=== PATIENT | female | born 1985 | race Caucasian/White ===

== ENCOUNTER 2019-06-16 15:45 | Observation (INO) ==
[2019-06-16] MEDS ORDERED: TYLENOL PO ONE (16:02)
[2019-06-16] MEDS ORDERED: NS 1,000 ML IV ONE ×3 (16:02→16:07)
--- NOTE | 2019-06-16 16:12 | PROVIDER DOCUMENTATION ---
HPI-Fever - General Chief Complaint: SEPSIS ALERT - P Stated Complaint: SOB / ABD PAIN / FEVER Time Seen by Provider: 06/16/19 16:02 Source: patient Allergies/Adverse Reactions: Patient Allergies Allergy/AdvReac Type Severity Reaction Status Date / Time cephalexin monohydrate * AdvReac RASH Verified 04/28/14 20:23 [From Keflex] levofloxacin [From Levaquin] AdvReac HIVES Verified 06/16/19 17:37 Home Medications: Home Medication List Medication Instructions Recorded Confirmed Last Taken Type Naproxen Sodium 550 mg PO BID PRN 04/28/14 04/28/14 04/28/14 19:00 History Oxycodone HCl/Acetaminophen 1 each PO Q4-6H PRN PRN 04/28/14 04/28/14 04/28/14 16:00 History [Oxycodone-Acetaminophen 5-325] - History of Present Illness-Fever Nature of Presenting Problem: 34 yof presents with c/o fever, chills, low back pain, abdominal pain, sob, cough x 2 days. reports she initially began feeling unwell about one week ago and symptoms progressed. She denies PMH. On meds for depression and and anxiety. Fever Severity/Quality: reports: greater than 102 F Onset/Duration: reports: 2 days ago Timing: reports: still present Severity: reports: severe Context: reports: none Recent Illness?: reports: none Fever Therapy SUPPLY MANAGER: Initiated Ibuprofen Cognitive Baseline: alert, oriented x3 Modifying Factors: improves with: nothing Associated Symptoms: reports: back/neck pain, cough, fever/chills, headaches, nausea, shortness of breath, weakness Similar Symptoms Previously?: No - Glascow Coma Score Best Eye Response ([place]): (4) open spontaneously Best Verbal Response ([place]): (5) oriented Best Motor Response ([place]): (6) obeys commands Review of Systems - Adult - REVIEW OF SYSTEMS - ADULT Constitutional: reports: see HPI, chills, fever. denies: no symptoms reported, fatique, night sweats, weight gain, weight loss, other Eyes: reports: no symptoms reported. denies: see HPI, discharge, dry eyes, decreased vision, blurred vision, double vision, eye pain, redness, other Ears, Nose, Mouth & Throat: reports: ear pain. denies: no symptoms reported, see HPI, ear discharge, hearing loss, tinnitus, epistaxis, sinus problem, nose pain, loose teeth, mouth/dental pain, mouth swelling, hoarseness, throat pain, throat swelling, other Cardiovascular: reports: no symptoms reported. denies: see HPI, chest pain, edema, heart murmur, irregular heart rate, orthopnea, palpitations, poor circulation, PND, syncope, other Respiratory: reports: see HPI, cough, shortness of breath. denies: no symptoms reported, chronic cough, dyspnea on exertion, excessive sputum production, hemoptysis, pleurisy, wheezing, other Gastrointestinal: reports: abdominal pain, nausea. denies: no symptoms reported, see HPI, hematemesis, constipation, diarrhea, difficulty swallowing, frequent heartburn, poor appetite, rectal bleeding, vomiting, other Genitourinary: reports: flank pain. denies: no symptoms reported, see HPI, dysuria, discharge, frequency, frequent UTI's, hematuria, hesitency, incontinence, urinary retention, urgency, other Musculoskeletal: reports: back pain (low back pain). denies: no symptoms reported, see HPI, bone pain, frequent leg cramps, joint pain, joint swelling, muscle aches, muscle weakness, neck pain, other Integumentary: reports: no symptoms reported. denies: see HPI, hives, hair loss, itching, mole changes, nail changes, rash, skin sores/ulcer, skin thickening, other Neurological: reports: no symptoms reported. denies: see HPI, ataxia, dizziness/vertigo, headache/migraines, loss of balance, numbness, paresthesia, seizure, slurred speech, syncope, tremors, other Psychiatric: reports: no symptoms reported. denies: see HPI, anxiety, anti-depressant use, alcohol/drug dependence, depression, emotional problems, insomnia, panic attacks, suicidal thoughts, other Endocrine: reports: no symptoms reported. denies: see HPI, change in skin pigment, excessive sweating, goiter, cold intolerance, heat intolerance, increased hunger, increased thirst, polyuria, other Hematologic/Lymphatic: reports: no symptoms reported. denies: see HPI, blood clots, easy bruising, low blood count, lymphedema, prolonged bleeding, swollen lymph nodes, transfusions, other Allergic/Immunologic: reports: no symptoms reported. denies: see HPI, allergic reactions, allergic rhinitis, asthma, eczema, food allergy, frequent infections, hay fever, hives, positive PPD, urticaria, other Past History - Adult - PAST MEDICAL HISTORY-ADULT Review of Records: reports: Nursing Assessment Review, Social history reviewed & non-contributory. Major Childhood Illnesses: reports: denies history - PRIOR SURGERIES/PROCEDURES Surgical/Procedure History: reports: - IMMUNIZATION STATUS Childhood Immunizations: See Nurse Assessment Flu Vaccine: See Nurse Assessment - FAMILY HISTORY Family History: reviewed, not pertinent Physical Exam-General - PHYSICAL EXAM-ADULT Initial Vital Signs Reviewed: Yes - CONSTITUTIONAL General Appearance: alert, no apparent distress. negative: appears well (ill appearing) - EYES Eyes: PERRL/EOMI, pink conjunctivae - HEAD, EARS, NOSE, MOUTH & THROAT HENMT: normocephalic/atraumatic, moist mucous membranes, normal ENT inspection - NECK Neck: non-tender, full range of motion, supple - RESPIRATORY Respiratory: chest non-tender, lungs clear, normal breath sounds, no pleuratic chest pain, no respiratory distress - CARDIOVASCULAR Cardiovascular: normal peripheral pulses, tachycardia - GASTROINTESTINAL (ABDOMEN) Abdominal Exam: normal bowel sounds, soft, tenderness - LYMPHATIC Lymphatic: no adenopathy - MUSCULOSKELETAL Back Exam: normal inspection, no CVA tenderness, no vertebral tenderness Extremity: normal range of motion, non-tender, normal gait Peripheral Pulses: radial (R): 2+, radial (L): 2+ - SKIN Integumentary: normal color, normal turgor, warm/dry - NEUROLOGIC Neurologic: grossly normal - PSYCHIATRIC Psych/Mental Status: normal mood/affect, oriented x 3 Progress - PLAN OF CARE/RESULTS Progress/Plan/Lab Results: Vital Signs - 8 hr 06/16/19 15:53 06/16/19 17:21 06/16/19 19:01 Temperature 102.1 F H 99.3 F Pulse Rate 138 H 137 H 117 H Respiratory Rate 28 H 20 28 H Blood Pressure 136/82 137/90 127/73 O2 Sat by Pulse Oximetry 95 100 97 Laboratory Results - last 24 hr 06/16/19 06/16/19 06/16/19 16:00 16:06 16:16 WBC RBC Hgb Hct MCV MCH MCHC RDW Std Deviation Plt Count MPV Immature Gran % (Auto) Neut % (Auto) Lymph % (Auto) Harris % (Auto) Eos % (Auto) Baso % (Auto) Immature Gran # (Auto) Neut # (Auto) Lymph # (Auto) Harris # (Auto) Eos # (Auto) Baso # (Auto) Segmented Neutrophils Band Neutrophils Lymphocytes Monocytes PT INR PTT (Actin FS) D-Dimer, Quantitative Specimen Type ARTERIAL Sample Site L RADIAL pH 7.47 H pCO2 28 L pO2 71 HCO3 23.2 Base Excess -2.1 Oxyhemoglobin 94.4 L ABG O2 Sat (Calculated) 17.0 ABG O2 Saturation 97.8 ABG Carboxyhemoglobin 2.40 ABG Methemoglobin 1.1 Himanshu Test YES A-a O2 Difference 44.0 Total Hemoglobin 12.8 Lactate 2.30 H Blood Gas Modality ROOM AIR FiO2 % 21.0 Sodium Potassium Chloride Carbon Dioxide Anion Gap BUN Creatinine Estimated GFR/1.73 m2 BUN/Creatinine Ratio Glucose Calculated Osmolality Calcium Magnesium Total Bilirubin AST ALT Alkaline Phosphatase Creatine Kinase Troponin T Total Protein Albumin Globulin Albumin/Globulin Ratio Plasma Lactate Urine Source CLEAN CATCH Urine Color YELLOW Urine Turbidity HAZY Urine pH 6.5 Ur Specific Palmer 1.016 Urine Protein TRACE A Ur Glucose (Stick) 200 A Ur Ketones (Stick) NEGATIVE Urine Blood LARGE A Urine Nitrite NEGATIVE Urine Bilirubin NEGATIVE Urobilinogen Dipstick NORMAL Urine Leukocytes LARGE A Urine WBC (Auto) TNTC A Urine RBC (Auto) TNTC A U Epithel Cells (Auto) >10 A Urine Bacteria (Auto) 1+ Urine Crystals NONE SEEN Small Round Cells NONE SEEN Urine Casts NONE SEEN Urine Yeast-like Cells NONE SEEN Influenza A (Rapid) NEGATIVE Influenza B (Rapid) NEGATIVE 06/16/19 06/16/19 06/16/19 16:57 16:57 16:57 WBC 11.54 H RBC 3.99 L Hgb 11.2 L Hct 34.6 L MCV 86.7 MCH 28.1 MCHC 32.4 L RDW Std Deviation 14.1 Plt Count 260 MPV 9.2 Immature Gran % (Auto) 0.3 Neut % (Auto) 85.6 H Lymph % (Auto) 7.7 L Harris % (Auto) 6.0 Eos % (Auto) 0.3 Baso % (Auto) 0.1 Immature Gran # (Auto) 0.03 Neut # (Auto) 9.88 H Lymph # (Auto) 0.89 L Harris # (Auto) 0.69 H Eos # (Auto) 0.04 Baso # (Auto) 0.01 Segmented Neutrophils 81 H Band Neutrophils 2 H Lymphocytes 11 L Monocytes 6 PT INR PTT (Actin FS) D-Dimer, Quantitative 0.54 H Specimen Type Sample Site pH pCO2 pO2 HCO3 Base Excess Oxyhemoglobin ABG O2 Sat (Calculated) ABG O2 Saturation ABG Carboxyhemoglobin ABG Methemoglobin Himanshu Test A-a O2 Difference Total Hemoglobin Lactate Blood Gas Modality FiO2 % Sodium 135 L Potassium 3.5 Chloride 103 Carbon Dioxide 19 L Anion Gap 13 BUN 7 L Creatinine 0.4 L Estimated GFR/1.73 m2 > 60 BUN/Creatinine Ratio 18 Glucose 149 H Calculated Osmolality 271 Calcium 8.0 L Magnesium Total Bilirubin 0.40 AST 20 ALT 11 Alkaline Phosphatase 85 Creatine Kinase 50 Troponin T Total Protein 6.8 Albumin 3.5 Globulin 3.0 Albumin/Globulin Ratio 1.0 Plasma Lactate Urine Source Urine Color Urine Turbidity Urine pH Ur Specific Palmer Urine Protein Ur Glucose (Stick) Ur Ketones (Stick) Urine Blood Urine Nitrite Urine Bilirubin Urobilinogen Dipstick Urine Leukocytes Urine WBC (Auto) Urine RBC (Auto) U Epithel Cells (Auto) Urine Bacteria (Auto) Urine Crystals Small Round Cells Urine Casts Urine Yeast-like Cells Influenza A (Rapid) Influenza B (Rapid) 06/16/19 06/16/19 06/16/19 16:57 16:57 16:57 WBC RBC Hgb Hct MCV MCH MCHC RDW Std Deviation Plt Count MPV Immature Gran % (Auto) Neut % (Auto) Lymph % (Auto) Harris % (Auto) Eos % (Auto) Baso % (Auto) Immature Gran # (Auto) Neut # (Auto) Lymph # (Auto) Harris # (Auto) Eos # (Auto) Baso # (Auto) Segmented Neutrophils Band Neutrophils Lymphocytes Monocytes PT 13.9 INR 1.02 PTT (Actin FS) 27.8 D-Dimer, Quantitative Specimen Type Sample Site pH pCO2 pO2 HCO3 Base Excess Oxyhemoglobin ABG O2 Sat (Calculated) ABG O2 Saturation ABG Carboxyhemoglobin ABG Methemoglobin Himanshu Test A-a O2 Difference Total Hemoglobin Lactate Blood Gas Modality FiO2 % Sodium Potassium Chloride Carbon Dioxide Anion Gap BUN Creatinine Estimated GFR/1.73 m2 BUN/Creatinine Ratio Glucose Calculated Osmolality Calcium Magnesium Total Bilirubin AST ALT Alkaline Phosphatase Creatine Kinase Troponin T < 0.010 Total Protein Albumin Globulin Albumin/Globulin Ratio Plasma Lactate 2.3 H Urine Source Urine Color Urine Turbidity Urine pH Ur Specific Palmer Urine Protein Ur Glucose (Stick) Ur Ketones (Stick) Urine Blood Urine Nitrite Urine Bilirubin Urobilinogen Dipstick Urine Leukocytes Urine WBC (Auto) Urine RBC (Auto) U Epithel Cells (Auto) Urine Bacteria (Auto) Urine Crystals Small Round Cells Urine Casts Urine Yeast-like Cells Influenza A (Rapid) Influenza B (Rapid) 06/16/19 16:57 WBC RBC Hgb Hct MCV MCH MCHC RDW Std Deviation Plt Count MPV Immature Gran % (Auto) Neut % (Auto) Lymph % (Auto) Harris % (Auto) Eos % (Auto) Baso % (Auto) Immature Gran # (Auto) Neut # (Auto) Lymph # (Auto) Harris # (Auto) Eos # (Auto) Baso # (Auto) Segmented Neutrophils Band Neutrophils Lymphocytes Monocytes PT INR PTT (Actin FS) D-Dimer, Quantitative Specimen Type Sample Site pH pCO2 pO2 HCO3 Base Excess Oxyhemoglobin ABG O2 Sat (Calculated) ABG O2 Saturation ABG Carboxyhemoglobin ABG Methemoglobin Himanshu Test A-a O2 Difference Total Hemoglobin Lactate Blood Gas Modality FiO2 % Sodium Potassium Chloride Carbon Dioxide Anion Gap BUN Creatinine Estimated GFR/1.73 m2 BUN/Creatinine Ratio Glucose Calculated Osmolality Calcium Magnesium 1.5 Total Bilirubin AST ALT Alkaline Phosphatase Creatine Kinase Troponin T Total Protein Albumin Globulin Albumin/Globulin Ratio Plasma Lactate Urine Source Urine Color Urine Turbidity Urine pH Ur Specific Palmer Urine Protein Ur Glucose (Stick) Ur Ketones (Stick) Urine Blood Urine Nitrite Urine Bilirubin Urobilinogen Dipstick Urine Leukocytes Urine WBC (Auto) Urine RBC (Auto) U Epithel Cells (Auto) Urine Bacteria (Auto) Urine Crystals Small Round Cells Urine Casts Urine Yeast-like Cells Influenza A (Rapid) Influenza B (Rapid) Orders Category Date Time Status Admit - [facility] Routine AdmDCTranf 06/16/19 17:46 Active Activity - Up with Assistance ORDERED Care 06/16/19 17:46 Active Cardiac Monitoring DIRECTED Care 06/16/19 16:00 Active DVT/PE Risk Assess/Protocol [QM] ORDERED Care 06/16/19 17:46 Active IV Insertion ORDERED Care 06/16/19 16:00 Completed Intake and Output-Strict ORDERED Care 06/16/19 17:46 Active Notify MD of + Sepsis Screen NOW Care 06/16/19 16:00 Active Notify Physician As Ordered Care 06/16/19 16:00 Active Vital Signs Order Q 8-HR ASSESS Care 06/16/19 17:46 Active Z-Document. for Tele Applied ORDERED Care 06/16/19 17:47 Active Regular Diet Diet 06/16/19 17:47 Active CHEST-1 VIEW [RAD] Stat Exams 06/16/19 16:[address] ABD/PELVIS/PULM ARTERIES [CT] Stat Exams 06/16/19 17:33 Completed ABG [RESP] Routine Lab 06/16/19 16:16 Completed BLOOD CULTURE [BLDCUL] Stat Lab 06/16/19 16:24 Ordered CBC WITH DIFF [HEME] Stat Lab 06/16/19 16:57 Completed CBC WITH NO DIFF [HEME] Routine Lab 06/17/19 06:00 Ordered CK PROFILE [SP CHEM] Stat Lab 06/16/19 16:57 Completed COMPREHENSIVE METABOLIC PANEL [CHEM] Routine Lab 06/17/19 06:00 Uncollected COMPREHENSIVE METABOLIC PANEL [CHEM] Stat Lab 06/16/19 16:57 Completed D-DIMER [COAG] Stat Lab 06/16/19 16:57 Completed Flu [INFLUENZA SCREEN PL] Stat Lab 06/16/19 16:00 Completed LACTATE, PLASMA [CHEM] Lab 06/16/19 19:17 Received LACTATE, PLASMA [CHEM] Lab 06/16/19 22:00 Uncollected LACTATE, PLASMA [CHEM] Q3H Lab 06/16/19 16:57 Completed MAGNESIUM [CHEM] Routine Lab 06/17/19 06:00 Uncollected MAGNESIUM [CHEM] Stat Lab 06/16/19 16:57 Completed PROTIME WITH INR [COAG] Stat Lab 06/16/19 16:57 Completed PTT [COAG] Stat Lab 06/16/19 16:57 Completed TROPONIN T Stat Lab 06/16/19 16:57 Completed URINALYSIS W/POSS RFLX CULT [URINALYSIS] Stat Lab 06/16/19 16:06 Completed URINE CULTURE [RM] Routine Lab 06/16/19 16:53 Ordered URINE MANUAL MICROSCOPIC [URINALYSIS] Stat Lab 06/16/19 16:06 Completed 0.9% Sodium Chloride Inj [Ns] 1,000 ml Med 06/16/19 17:45 Active IV 75 mls/hr 0.9% Sodium Chloride Inj [Ns] 1,000 ml Med 06/16/19 16:02 Discontinued IV 999 mls/hr 0.9% Sodium Chloride Inj [Ns] 1,000 ml Med 06/16/19 16:07 Discontinued IV 999 mls/hr 0.9% Sodium Chloride Inj [Ns] 1,000 ml Med 06/16/19 16:07 Discontinued IV 999 mls/hr Acetaminophen [Tylenol] Med 06/16/19 16:02 Discontinued 1,000 mg PO NOW ONE Acetaminophen [Tylenol] Med 06/16/19 17:45 Active 650 mg PO Q6H PRN PRN Diphenhydramine [Benadryl] Med 06/16/19 17:26 Discontinued 25 mg IV NOW ONE Ibuprofen [Motrin] Med 06/16/19 19:03 Discontinued 800 mg PO NOW ONE Levofloxacin 750 mg/D5w [Levaquin 750 mg/D5w] Med 06/16/19 16:45 Discontinued 750 mg in 150 ml IV NOW Ondansetron [Zofran] Med 06/16/19 17:45 Active 4 mg IV Q4-6H PRN PRN Piperacillin/Tazobactam [Zosyn] 3.375 gm Med 06/16/19 17:45 Active 0.9% Sodium Chloride Inj [Ns] 50 ml IV Q6H Oxygen Device Stat Oth 06/16/19 16:00 Active Telemetry [OM.EQ] Routine Oth 06/16/19 17:46 Active EKG [EKG] Stat Ther 06/16/19 16:08 Ordered 1725: NOTIFIED BY RN THAT PATIENT HAVING REACTION TO LEVAQUIN. PT ASSESSED BY HUMAN RESOURCES SPECIALIST AND MD BALDWIN, LOCAL REACTION WITH HIVES AND REDNESS TO THE RIGHT ARM (LOCATION OF IV), NO RESP DISTRESS, PT DENIES TROUBLE BREATHING OR CHANGES IN THE WAY HER THROAT FEELS. LUNGS CTAB, NO WHEEZING OR STRIDOR. RECOMMEND 25MG BENADRYL IV NOW AND MONITOR 1800: PT HIVES HAVE FULLY RESOLVED, SHE IS NAD. ZOSYN INFUSING CURRENTLY Result Diagrams: 06/16/19 16:57 06/16/19 16:57 - XRAY 1 XRAY Study: Chest Impression: See EMR Report ( EXAM: CHEST-1 VIEW - 06/16/2019 HISTORY: FEVER TECHNIQUE: Portable chest one view COMPARISON: None. FINDINGS: Heart size appears within normal limits. The lungs appear clear. There is no pleural effusion or pneumothorax identified. IMPRESSION: No evidence of acute disease. Electronically signed by Magdaleno Menendez 06/16/2019 4:36 PM 06/16/19 1636 Interpreting Physician: Magdaleno Menendez MD Dictated Date/Time: 06/16/19 163 cc: Mehdi Baldwin MD; Walter Martinez MD) - CT/MRI 1 CT Study: Abdomen, Angiogram, Pelvis, Thorax Impression: See EMR Report (CT ABD/PELVIS/PULM ARTERIES - 06/16/2019 INDICATION: SOB, TACHY, ELEVATED D-DIMER TECHNIQUE: Axial CT images were obtained after administering intravenous contrast. Coronal MIP images were generated. COMPARISON: None FINDINGS: CHEST: There is no pulmonary embolus and. Heart and great vessels are normal. The lungs are clear. Bones are intact. Abdomen pelvis: The liver, gallbladder, spleen, pancreas, adrenals, and kidneys are normal. No bowel obstruction or inflammation. Normal appendix. Urinary bladder, uterus, and rectum are normal. Bones are intact and well certified fraud examiner alized. IMPRESSION: Negative exam. This exam was performed using automated exposure control, adjustment of mA or kV according to patient size, and/or use of iterative reconstruction technique Electronically signed by Montez Pathak 06/16/2019 7:14 PM 06/16/191913 Interpreting Physician: Montez Pathak MD Dictated Date/Time: 06/16/191910 cc: Elaina Bowers; Walter Martinez MD) - CONSULTS/PCP/HOSPITALIST Notification #1 *Consult/PCP/Hospitalist*: DR BEACH Time Discussed: 19:21 Consult Disposition: Admit (HAS ALREADY SEEN PATIENT) Departure - Departure Date of Disposition Decision: 06/16/19 Time of Disposition Decision: 19:19 DIAGNOSIS: UTI (urinary tract infection), Sepsis Disposition: ADMITTED INPATIENT 09 Certified Medical Emergency: Emergent Condition: Stable Referrals and Follow-Ups: Walter Martinez MD [Primary Care Provider] - - Critical Care Note This patient required my direct & personal management of CC.: No Attestation - Physician/ ALVIN Attestation Patient care was provided by Advanced Practice Provider:: Yes Advanced Practice Provider:: Elaina Bowers Advanced Practice Provider documentation review:: The Mid-level provider documentation, treatment plan and medical decision making was reviewed by the physician who agrees with all treatment and medical decision making by the MLP. The physician spent face to face time with patient:: No Advanced Practice Provider documentation review:: Supervising physician onsite and consulted in the evaluation and care of this patient. The physician did not have a face to face encounter with the patient.
[2019-06-16 16:29] LABS: URINE SOURCE CLEAN CATCH
[2019-06-16 16:31] LABS: BILIRUBIN URINE NEGATIVE (NEGATIVE); BLOOD URINE LARGE (NEGATIVE); COLOR YELLOW; GLUCOSE URINE 200 mg/dL (NEGATIVE); KETONE URINE NEGATIVE (NEGATIVE); LEUKOCYTES URINE LARGE (NEGATIVE); NITRITE URINE NEGATIVE (NEGATIVE); PH URINE 6.5; PROTEIN URINE TRACE mg/dL (NEGATIVE); SP GRAVITY URINE 1.016; TURBIDITY URINE HAZY (CLEAR); UROBILINOGEN URINE NORMAL (NORMAL)
[2019-06-16 16:33] LABS: INFLUENZA A NEGATIVE (NEGATIVE); INFLUENZA B NEGATIVE (NEGATIVE)
--- NOTE | 2019-06-16 16:39 | Diag Imaging Result Doc PS360 ---
EXAM: CHEST-1 VIEW - 06/16/2019 HISTORY: FEVER TECHNIQUE: Portable chest one view COMPARISON: None. FINDINGS: Heart size appears within normal limits. The lungs appear clear. There is no pleural effusion or pneumothorax identified. IMPRESSION: No evidence of acute disease. Electronically signed by Magdaleno Menendez 06/16/2019 4:36 PM
[2019-06-16 16:42] LABS: BE -2.1 mmoll (-3.0-3.0); BLOOD TYPE ARTERIAL; HCO3-(ACT) 23.2 mmoll (20.0-26.0); METHB 1.1 % (0.0-1.5); O2HB 94.4 % (95.0-99.0); PCO2(98.6) 28 mmHg (35-45); PO2(98.6) 71 mmHg (60-100); SAMPLE BLOOD; SAO2 97.8 % (95.0-100.0); THB 12.8 g/dL (11.5-17.4); pH(98.6) 7.47 (7.35-7.45)
[2019-06-16 16:43] LABS: MODALITY ROOM AIR
[2019-06-16 16:44] LABS: ALLEN TEST YES
[2019-06-16] MEDS ORDERED: LEVAQUIN 750 MG/D5W 750 MG/150 ML IVPB IV ONE (16:45)
[2019-06-16 16:50] LABS: UR EPITHELIAL CELLS >10 /HPF (<10); URINE BACTERIA 1+ /HPF; URINE RBC TNTC /HPF (<10); URINE WBC TNTC /HPF (<10); URINE YEAST NONE SEEN
[2019-06-16 16:51] LABS: URINE CASTS NONE SEEN; URINE CRYSTALS NONE SEEN; URINE SMALL ROUND CELLS NONE SEEN
[2019-06-16 17:17] LABS: BASO# 0.01 X1000 (0.0-0.2); BASO% 0.1 % (0.0-0.8); EOS# 0.04 X1000 (0.0-0.7); EOS% 0.3 % (0.0-10.0); HEMATOCRIT 34.6 % (37.0-47.0); HEMOGLOBIN 11.2 g/dL (12.0-16.0); IMM GRAN# 0.03 X1000 (0.0-0.04); IMM GRAN% 0.3 % (0.0-0.5); LYMPH# 0.89 X1000 (1.2-3.4); LYMPH% 7.7 % (20.5-51.1); MCH 28.1 PG (27-31); MCHC 32.4 g/dL (33-37); MCV 86.7 FL (81-99); MONO# 0.69 X1000 (0.11-0.59); MPV 9.2 FL (7.4-10.4); NEUT# 9.88 X1000 (1.4-6.5); NEUT% 85.6 % (42.2-75.2); PLT 260 X1000 (130-400); RBC 3.99 XMIL (4.2-5.4); RDW 14.1 % (11.5-14.5); WBC 11.54 X1000 (4.8-10.8)
[2019-06-16 17:20] LABS: INR 1.02; PROTIME 13.9 Seconds (11.0-16.0)
[2019-06-16 17:21] LABS: PTT 27.8 Seconds (22.3-41.8)
[2019-06-16] MEDS ORDERED: BENADRYL IV ONE (17:26)
[2019-06-16 17:32] LABS: AGAP 13; ALBUMIN 3.5 g/dL (3.5-5.0); ALKALINE PHOSPHATASE 85 U/L (32-104); BUN 7 mg/dL (8-22); CHLORIDE 103 mmol/L (98-107); CK PROFILE 50 U/L (24-173); COSMO 271; CREATININE 0.4 mg/dL (0.5-0.9); ESTIMATED GFR > 60; GLUCOSE 149 mg/dL (70-104); GOT 20 U/L (10-30); GPT 11 U/L (10-36); POTASSIUM 3.5 mmol/L (3.5-5.1); SODIUM 135 mmol/L (136-145); TCO2 19 mmol/L (25-35); TOTAL PROTEIN 6.8 g/dL (6.3-8.3)
[2019-06-16 17:43] LABS: BANDS 2 % (0-1); LYMPHS 11 % (21-51); MONO 6 % (1-9); SEGS 81 % (42-75)
[2019-06-16] MEDS: ZOSYN 3.375 GM in NS 50 ML IV SCH ×2 (17:45→23:59)
[2019-06-16] MEDS ORDERED: ZOFRAN IV PRN (17:45)
[2019-06-16] MEDS ORDERED: MOTRIN PO ONE (19:03)
--- NOTE | 2019-06-16 19:08 | HISTORY AND PHYSICAL ---
CHIEF COMPLAINT: Abdominal pain, flank pain. HISTORY OF PRESENT ILLNESS: Patient is a very pleasant, 34-year-old, ill- appearing female, who is complaining of fevers, chills, and left flank pain, as well as abdominal pain. Notes she has had some cough and shortness of breath for the past couple of days. She has felt unwell for approximately a week. Symptoms apparently have continued to progress. Fever started last night, worsened today. ALLERGIES: Keflex. She most likely has an allergy to Levaquin. She currently is receiving it and her arm is itching. MEDICATIONS: Naprosyn p.r.n. REVIEW OF SYSTEMS: The patient notes she has had a fever of 102 yesterday and today. She has had increased nausea, vomiting, increased abdominal pain, and flank pain. She has had a headache, coughing, shortness of breath, generally weak. She has had shaking and chills. Denies any dysuria, however. Denies hematuria, hesitancy. Denies constipation, melena, hematochezia. Denies nasal congestion, blurred vision, change in vision. Denies any focalized numbness, tingling, or weakness in her extremities. Denies any chest pain. Denies any true shortness of breath, except for when she is coughing. PAST MEDICAL HISTORY: She has no chronic active medical problems. She has had a section in the past. FAMILY HISTORY: Noncontributory. PHYSICAL EXAMINATION: VITAL SIGNS: Reviewed. Temperature 102.1 degrees, pulse 138, respiratory 28, BP 136/82, saturation 95% on room air. GENERAL: Patient is awake, alert. She is in no current respiratory distress, although she is somewhat ill appearing. HEENT: Normocephalic, atraumatic. AFIA. NECK: Supple. CARDIOVASCULAR: Regular rate. CHEST: Clear, nonlabored. ABDOMEN: Soft, nondistended. She does have left flank pain. Positive bowel sounds. EXTREMITIES: Moves all extremities. NEUROLOGIC: No changes. LABORATORY DATA: White count is at 11. D-dimer 0.5. WBCs and RBCs too numerous to count in the urine. ASSESSMENT: 1. Pyelonephritis. 2. Sepsis secondary to pyelonephritis. 3. Fever. 4. Leukocytosis. 5. Elevated D-dimer. CTA currently pending. PLAN: We are going to admit her to the hospital. IV fluids, antibiotics, pain control. We will follow her supraventricular tachycardia. Further orders as needed. cc: Arya Fitzpatrick MD MTDD
--- NOTE | 2019-06-16 19:17 | Diag Imaging Result Doc PS360 ---
CT ABD/PELVIS/PULM ARTERIES - 06/16/2019 INDICATION: SOB, TACHY, ELEVATED D-DIMER TECHNIQUE: Axial CT images were obtained after administering intravenous contrast. Coronal MIP images were generated. COMPARISON: None FINDINGS: CHEST: There is no pulmonary embolus and. Heart and great vessels are normal. The lungs are clear. Bones are intact. Abdomen pelvis: The liver, gallbladder, spleen, pancreas, adrenals, and kidneys are normal. No bowel obstruction or inflammation. Normal appendix. Urinary bladder, uterus, and rectum are normal. Bones are intact and well mineralized. IMPRESSION: Negative exam. This exam was performed using automated exposure control, adjustment of mA or kV according to patient size, and/or use of iterative reconstruction technique Electronically signed by Montez Pathak 06/16/2019 7:14 PM
[2019-06-16] MEDS: NS 1,000 ML IV SCH (22:14)
[2019-06-16] MEDS: TYLENOL PO PRN (23:59)
[2019-06-17] MEDS: TYLENOL PO PRN (05:18)
[2019-06-17] MEDS: ZOSYN 3.375 GM in NS 50 ML IV SCH ×4 (06:28→23:05)
[2019-06-17 06:50] LABS: AGAP 12; ALBUMIN 3.3 g/dL (3.5-5.0); ALKALINE PHOSPHATASE 85 U/L (32-104); BUN 7 mg/dL (8-22); CALCIUM 7.4 mg/dL (8.8-10.2); CHLORIDE 107 mmol/L (98-107); COSMO 280; CREATININE 0.5 mg/dL (0.5-0.9); ESTIMATED GFR > 60; GLUCOSE 140 mg/dL (70-104); GOT 15 U/L (10-30); GPT 10 U/L (10-36); MAGNESIUM 1.5 mg/dL (1.5-2.7); POTASSIUM 3.4 mmol/L (3.5-5.1); SODIUM 140 mmol/L (136-145); TCO2 22 mmol/L (25-35); TOTAL PROTEIN 6.2 g/dL (6.3-8.3)
[2019-06-17 07:08] LABS: MCH 27.5 PG (27-31); MCHC 31.3 g/dL (33-37); MCV 87.9 FL (81-99); RBC 3.64 XMIL (4.2-5.4); RDW 14.1 % (11.5-14.5); WBC 11.05 X1000 (4.8-10.8)
[2019-06-17] MEDS ORDERED: SOLU-MEDROL IV ONE (09:34)
[2019-06-17] MEDS: LOPRESSOR PO SCH ×3 (10:07→22:15)
[2019-06-17] MEDS: DILAUDID IV PRN ×3 (10:07→19:31)
[2019-06-17] MEDS: LEXAPRO PO SCH (10:07)
[2019-06-17] MEDS: NS 1,000 ML IV SCH (11:27)
[2019-06-17] MEDS ORDERED: VANCOMYCIN IV PER PHARMACY MISC SCH (16:30)
--- NOTE | 2019-06-17 17:41 | PROGRESS NOTE ---
DATE: 06/17/2019 SUBJECTIVE: Patient notes she still feels terrible, still has flank pain, still has a headache. She did have a low-grade fever earlier at 100.8. Still having nausea. PHYSICAL EXAMINATION: Vital Signs: Reviewed. T-max 100.8, pulse 112, respiratory rate 22, BP 124/66. General: Patient is still ill appearing, although does appear to feel a little bit better than yesterday. HEENT: Normocephalic. Neck: Supple. Cardiovascular: Tachycardic. No murmurs. Chest: Clear, nonlabored. Abdomen: Soft, obese, tender over the left flank. Extremities: Moves all extremities. Neurologic: No changes. ASSESSMENT: 1. Pyelonephritis. 2. Sepsis secondary to pyelonephritis. 3. Fever. 4. Leukocytosis. PLAN: We will continue patient in the hospital. I am going to add vancomycin, as she is growing gram-positive cocci in her urine. Further orders as needed. cc: Arya Fitzpatrick MD
[2019-06-17] MEDS: VANCOMYCIN 2,000 MG in NS 500 ML IV SCH (17:59)
[2019-06-18] MEDS: NS 1,000 ML IV SCH ×2 (05:21→08:57)
[2019-06-18] MEDS: DILAUDID IV PRN ×2 (05:21→08:57)
[2019-06-18] MEDS: ZOSYN 3.375 GM in NS 50 ML IV SCH ×2 (05:21→11:30)
[2019-06-18] MEDS: VANCOMYCIN 2,000 MG in NS 500 ML IV SCH (06:01)
[2019-06-18 07:39] VITALS: BP 129/69
[2019-06-18] MEDS: LEXAPRO PO SCH (08:57)
[2019-06-18] MEDS: LOPRESSOR PO SCH (08:57)
[2019-06-18] MEDS ORDERED: NORCO-7.5 PO ONE (10:54)
--- NOTE | 2019-06-18 13:58 | DISCHARGE SUMMARY ---
ADMISSION DATE: 06/16/2019 DISCHARGE DATE: 06/18/2019 ADDENDUM: Patient seen and examined by myself. Full note dictated and discussed with nurse practitioner. On discharge, patient is awake, alert. Still having a mild headache, but overall her color is improved. She is feeling better. She has been afebrile for the past 24 hours. Her urine is currently growing gram-negative rods, although we do not have final culture and sensitivities. We are going to discharge her home. Discussed with her if we have not called her before afternoon with final results, give us a call back. cc: Arya Fitzpatrick MD
--- NOTE | 2019-06-18 14:09 | DISCHARGE SUMMARY ---
ADMISSION DATE: 06/16/2019 DISCHARGE DATE: 06/18/2019 PRIMARY CARE PROVIDER: Dr. Walter Martinez consultations none pertinent procedures abdomen and pelvis CT was a negative exam. DISCHARGE DIAGNOSES: 1. Pyelonephritis. 2. Sepsis secondary to pyelonephritis. 3. Fever. 4. Leukocytosis. HOSPITAL COURSE: Briefly, Ms. Carmona is a 34-year-old female who presented to the ED with complaint of fever, chills, and left flank pain as well as abdominal pain. In the ED she was found to have a temperature of 102.1 degrees, white count of 11, a urine that showed 1+ bacteria, too numerous to count WBCs, large leukocytes, large blood. She was initiated on IV antibiotics. Initial lactate was positive and was treated with fluid boluses per the protocol and was switched to IV Zosyn for suspected pyelonephritis. Her urine culture is growing out gram-negative rods. She has now been fever free for more than 24 hours and will be discharged home on p.o. Bactrim given her multiple allergies and we will continue to follow her urine culture. VITAL SIGNS: At time of discharge, temperature is 97.7 degrees, heart rate 80, respirations 16, blood pressure 129/69, O2 is 99% on room air. DISCHARGE DIET: Regular. DISCHARGE MEDICATIONS: 1. Lexapro 20 mg p.o. daily. 2. Bactrim DS 1 each p.o. daily for 14 days. FOLLOWUP: Ms. Carmona is being discharged back home with self care. She is to follow up with her primary care provider, Dr. Walter Martinez, in 1 to 2 weeks. She is to take all antibiotics as prescribed. She can return to the ED or call 911 for any worsening of symptoms. Dictated by ASIA Edwards for Arya Fitzpatrick MD cc: MD Walter Lares MD
[2019-06-20 11:21] LABS: I-STAT CREATININE 0.5 mg/dL (0.6-1.3)
== END 2019-06-18 15:00 | disposition home or self-care (01) ==
LOC: P.ED 15:45 → INTOOBSV 20:34 → P.MEDSURG 20:34
PROVIDERS: ATTEND Family Medicine